=== PATIENT | male | born 1945 | race Asian ===

== ENCOUNTER 2019-06-18 14:14 | Inpatient (IN) | payer MEDICARE ==
[~2019-06-18] VITALS: Ht 160 cm; Wt 72.0 kg
[2019-06-28 13:12] VITALS: BP 107/78
== END 2019-06-28 16:00 | disposition home or self-care (01) | DRG 222 ==
LOC: ED 15:07 → ICU 16:02 → CCU 06-19 17:37 → 5SO 06-21 15:19 → CCU 06-24 08:09 → 5SO 06-26 10:52 → DCLOUNGE 06-28 15:53
PROVIDERS: ADMIT Internal Medicine Cardiovascular Disease; ATTEND Internal Medicine Cardiovascular Disease
PROC: 4A023N7 Measurement of Cardiac Sampling and Pressure, Left Heart, Percutaneous Approach (ICD-10-PCS; 2019-06-18)
PROC: B2111ZZ Fluoroscopy of Multiple Coronary Arteries using Low Osmolar Contrast (ICD-10-PCS; 2019-06-18)
PROC: B2151ZZ Fluoroscopy of Left Heart using Low Osmolar Contrast (ICD-10-PCS; 2019-06-18)
PROC: 02703EZ Dilation of Coronary Artery, One Artery with Two Intraluminal Devices, Percutaneous Approach (ICD-10-PCS; 2019-06-18)
PROC: 0JH608Z Insertion of Defibrillator Generator into Chest Subcutaneous Tissue and Fascia, Open Approach (ICD-10-PCS; principal; 2019-06-21)
PROC: 02HK3KZ Insertion of Defibrillator Lead into Right Ventricle, Percutaneous Approach (ICD-10-PCS; 2019-06-21)
PROC: 02H63KZ Insertion of Defibrillator Lead into Right Atrium, Percutaneous Approach (ICD-10-PCS; 2019-06-21)
DX: I21.09 ST elevation (STEMI) myocardial infarction involving other coronary artery of anterior wall (principal); R57.0 Cardiogenic shock; F05 Delirium due to known physiological condition; I47.2 Ventricular tachycardia; J81.1 Chronic pulmonary edema; E78.5 Hyperlipidemia, unspecified; E87.6 Hypokalemia; G25.5 Other chorea; I12.9 Hypertensive chronic kidney disease with stage 1 through stage 4 chronic kidney disease, or unspecified chronic kidney disease; I25.10 Atherosclerotic heart disease of native coronary artery without angina pectoris; I25.5 Ischemic cardiomyopathy; I27.20 Pulmonary hypertension, unspecified; I34.0 Nonrheumatic mitral (valve) insufficiency; I48.91 Unspecified atrial fibrillation; N18.3 Chronic kidney disease, stage 3 (moderate); Z87.891 Personal history of nicotine dependence
CPT/HCPCS: 33249; 36415; 71045; 80047; 80048; 80053; 80061; 82533; 83735; 83880; 84484; 85014; 85018; 85025; 87081; 93005; 93458; 99156; 99157; 99291; C1721; C1769; C1779; C1876; C1892; C1894; C1895; C8929; C9600; G0378; J0583; J0690; J1265; J1644; J2250; J3010; P9047; Q9957; C1725; C1887; J0282; J1940; J2270; J2370; J3475; J7050; J7060; Q9967